=== PATIENT | male | born 1935 | race Caucasian/White ===

== ENCOUNTER 2021-10-28 18:11 | Inpatient (IN) | payer MEDICARE, BC ==
[2021-10-28] MEDS ORDERED: IPRATROPIUM-ALBUTEROL 3 ML NEB INHALATION STA (18:21)
--- NOTE | 2021-10-28 18:29 | ED ---
General Adult HPI - General Stated complaint: LUCÍA Time Seen by Provider: 10/28/21 18:11 Source: patient, EMS, RN notes reviewed, old records reviewed Mode of arrival: EMS Limitations: no limitations - History of Present Illness Initial comments: This is an 86-year-old male who was transferred from [facility]. Patient was transferred because he had pneumonia he was hyponatremic and they were concerned about him being septic. Patient states she started coughing on Wednesday symptoms worsened on Wednesday and today decided to go to the hospital. Patient had fevers but denies chills. Patient denies chest pain or palpitations. Patient denies abdominal pain patient denies nausea vomiting. Patient denies back pain. Patient denies headache patient denies numbness weakness. Patient states he's got a chronic cough and was given antibiotics at the other ER prior to his arrival here - Related Data Allergies Allergy/AdvReac Type Severity Reaction Status Date / Time Penicillins Allergy Anaphylaxis Verified 10/28/21 18:24 Review of Systems ROS Statement: Those systems with pertinent positive or pertinent negative responses have been documented in the HPI. ROS Other: All systems not noted in ROS Statement are negative. Past Medical History Past Medical History: Coronary Artery Disease (CAD), Hyperlipidemia, Hypertension History of Any Multi-Drug Resistant Organisms: None Reported Past Surgical History: No Surgical Hx Reported Past Psychological History: No Psychological Hx Reported Smoking Status: Never smoker Past Alcohol Use History: None Reported Past Drug Use History: None Reported General Exam - General Exam Comments Initial Comments: GENERAL: Patient is well-developed and well-nourished. Patient is nontoxic and well- hydrated and is in mild distress. ENT: Neck is soft and supple. No significant lymphadenopathy is noted. Oropharynx is clear. Moist mucous membranes. Neck has full range of motion without eliciting any pain. EYES: The sclera were anicteric and conjunctiva were pink and moist. Extraocular movements were intact and pupils were equal round and reactive to light. Eyelids were unremarkable. PULMONARY: Unlabored respirations. Good breath sounds bilaterally. Patient has crackles right upper lobe. CARDIOVASCULAR: There is a regular rate and rhythm without any murmurs gallops or rubs. ABDOMEN: Soft and nontender with normal bowel sounds. SKIN: Skin is clear with no lesions or rashes and otherwise unremarkable. NEUROLOGIC: Patient is alert and oriented x3. Cranial nerves II through XII are grossly intact. Motor and sensory are also intact. Normal speech, volume and content. Symmetrical smile. MUSCULOSKELETAL: Normal extremities with adequate strength and full range of motion. LYMPHATICS: No significant lymphadenopathy is noted PSYCHIATRIC: Normal psychiatric evaluation. Limitations: no limitations Course Vital Signs 10/28/21 10/28/21 10/28/21 18:19 18:41 18:46 Temperature 97.7 F Pulse Rate 116 H 114 H 116 H Respiratory 36 H Rate Blood Pressure 143/95 O2 Sat by Pulse 91 L Oximetry Medical Decision Making - Medical Decision Making EKG shows sinus tachycardia with occasional PAC at a rate of 119 bpm WI interval is on a 64 QRS is under 51 QT interval 346 QTC is 417. She has a left bundle branch block Disposition Clinical Impression: Pneumonia, Hyponatremia Disposition: ADMITTED IP TO THIS HOSP Referrals: Domenico Carroll [facility] [REFERRING] - 1-2 days Time of Disposition: 18:31
[2021-10-28] MEDS ORDERED: PNEUMONIA PROTOCOL UTILIZED 1 EACH MISC PO PRN (20:09)
[2021-10-28] MEDS ORDERED: LEVOFLOXACIN 750MG-D5W PMX 750 MG in DEXTROSE/WATER 1 150ML.BAG IVPB STA (20:28)
[2021-10-28] MEDS: SODIUM CHLORIDE 0.9% 1,000 ML IV SCH (22:02)
[2021-10-29] MEDS: metroNIDAZOLE-NS PMX 500 MG in SALINE 1 100ML.BAG IVPB SCH ×2 (01:14→08:19)
[2021-10-29] MEDS ORDERED: FUROSEMIDE 10 MG/ML 4 ML VIAL IV STA (04:51)
[2021-10-29] MEDS: methylPREDNISolone SOD SUCCI 40 MG/ML 1 ML VIAL IV SCH ×3 (04:59→20:13)
--- NOTE | 2021-10-29 05:45 | XR ---
EXAMINATION TYPE: XR chest 1V portable DATE OF EXAM: 10/29/2021 COMPARISON: Study HISTORY: COPD breathing TECHNIQUE: Single view FINDINGS: There is a large area of airspace consolidation lateral right upper lobe. There is coarse p ulmonary interstitial edema. There is mild thoracic levoscoliosis. There are chest leads. No obvious heart failure. No pleural effusion. IMPRESSION: Increasing right upper lobe infiltrate and pulmonary interstitial edema compared to yeste rday and consistent with worsening pneumonia.
[2021-10-29] MEDS ORDERED: LEVOFLOXACIN 750 MG TAB PO SCH (09:00)
[2021-10-29 09:48] LABS: Basophils % (A) 0 %; Eosinophils % (A) 0 %; HCT 43.9 % (39.0-53.0); HGB 14.1 gm/dL (13.0-17.5); Lymphocytes # (A) 0.3 k/uL (1.0-4.8); Lymphocytes % (A) 2 %; MCH 30.6 pg (25.0-35.0); MCHC 32.2 g/dL (31.0-37.0); Mean Platelet Volume 7.2; Monocytes # (A) 0.2 k/uL (0-1.0); Monocytes % (A) 2 %; Neutrophils # (A) 12.9 k/uL (1.3-7.7); Neutrophils % (A) 96 %; Platelet Count 243 k/uL (150-450); RBC 4.62 m/uL (4.30-5.90); RDW 13.3 % (11.5-15.5); WBC 13.5 k/uL (3.8-10.6)
[2021-10-29 10:04] LABS: Sodium 125 mmol/L (137-145)
[2021-10-29 10:06] LABS: ALT 27 U/L (4-49); AST 57 U/L (17-59); African American GFR (CKD) >90 (>60 ml/min/1.73 sqM); Albumin 3.6 g/dL (3.5-5.0); Alkaline Phosphatase 89 U/L (38-126); Anion Gap 9 mmol/L; Blood Urea Nitrogen 21 mg/dL (9-20); Calcium 8.5 mg/dL (8.4-10.2); Carbon Dioxide 26 mmol/L (22-30); Chloride 90 mmol/L (98-107); Glucose 222 mg/dL (74-99); Non-African American GFR(CKD) 80 (>60 ml/min/1.73 sqM); Potassium 3.8 mmol/L (3.5-5.1); Total Bilirubin 1.6 mg/dL (0.2-1.3); Total Protein 6.2 g/dL (6.3-8.2)
[2021-10-29] MEDS ORDERED: RX INFO: IV CONTRAST WAS GIVEN 1 EACH MISC MISCELLANE PRN (10:40)
--- NOTE | 2021-10-29 11:25 | CT ---
EXAMINATION TYPE: CT chest w con DATE OF EXAM: 10/29/2021 COMPARISON: None HISTORY: Masslike consolidation in right lung CT DLP: 506.6 mGycm Automated exposure control for dose reduction was used. CONTRAST: CT scan of the chest is performed with IV Contrast, patient injected with 100 ml mL of Isovue 300. FINDINGS: LUNGS: Large area of airspace consolidation right upper lobe with air bronchograms seen may reflect p neumonia. Infiltrate of other etiology is difficult to exclude. There are additional areas of patchy infiltrate within the right middle lobe and right lower lobe. Small right-sided pleural effusion and even smaller left-sided pleural effusion noted. The remainder of the lungs are clear. MEDIASTINUM: There are no greater than 1 cm hilar or mediastinal lymph nodes. No pericardial effusi on is seen. Thoracic aorta is of normal caliber. The heart is not enlarged. UPPER ABDOMEN: No significant abnormality appreciated. OTHER: No additional significant abnormality is seen. IMPRESSION: Large area of airspace consolidation right upper lobe with air bronchograms seen may reflect pneumoni a. Infiltrate of other etiology is difficult to exclude. Follow-up until resolution advised. Addition al smaller patchy infiltrates right lower lobe right middle lobe.
[2021-10-29] MEDS: ASPIRIN 325 MG TAB PO SCH (11:46)
[2021-10-29] MEDS: lisinopriL 20 MG TAB PO SCH (11:46)
[2021-10-29] MEDS: LEVOTHYROXINE 137 MCG TAB PO SCH (11:46)
[2021-10-29] MEDS: SODIUM CHLORIDE 0.9% 1,000 ML IV SCH (11:46)
[2021-10-29] MEDS ORDERED: ACETAMINOPHEN TAB 325 MG TAB PO PRN (12:16)
[2021-10-29] MEDS ORDERED: LACTULOSE 20 GM/30 ML CUP PO PRN (12:16)
[2021-10-29] MEDS ORDERED: ONDANSETRON 4 MG/2 ML VIAL IVP PRN (12:16)
[2021-10-29] MEDS ORDERED: LORazepam 0.5 MG TAB PO PRN (12:16)
[2021-10-29] MEDS ORDERED: CALCIUM CARBONATE 500 MG CHEWABLE PO PRN (12:16)
--- NOTE | 2021-10-29 13:23 | P.CNPUL ---
History of Present Illness Consult date: 10/29/21 Requesting physician: Jonatan Meredith Reason for consult: pneumonia Chief complaint: Cough and minimal shortness of breath. History of present illness: This is an 86-year-old white male known history of hypertension, lifetime nonsmoker, patient was seen yesterday at [facility] with 3 days history of cough. Patient described the cough as nonproductive, it is not associated with any fever or chills or hemoptysis or chest pain. His cough was persistent, and he was seen in the ER at [facility]. Chest x-ray showed extensive right upper lobe consolidation, hence the patient was transferred to [facility], admitted last night, and I was asked to see him on consul tation. Patient is ALLERGIC to penicillin, he was started empirically on initially Levaquin and Flagyl, but the admitting physician changed to Rocephin. And discontinued Levaquin. CBC showed leukocytosis with WBC count of 13.5. His sodium was noted to be low at 125. And the rest of his labs came back unremarkable. Lactic acid was 1.5. And liver enzymes were basically unremarkable. Renal profile is normal. Patient was admitted and this consult was initiated patient is receiving 0.9 normal saline at 75 mL per hour. After evaluating the patient, I felt that the chest x-ray is showing a masslike consolidation, recommended a CT of the chest, showed extensive consolidation in the right upper lobe, with air bronchogram consistent with pneumonia more so than malignancy. And there is also evidence of infiltrate in the right middle lobe Review of Systems Constitutional: Negative HEENT: Negative Pulmonary: As noted in HPI mostly symptoms of nonproductive cough. Cardiac: Negative, known history of hypertension. GI: Negative Genitourinary: Negative Musculoskeletal low back pain Skin: Negative Urologic: Negative Hematologic: Negative Psychiatric: Negative Neurologic: Negative Past Medical History Past Medical History: Coronary Artery Disease (CAD), Hyperlipidemia, Hypertension History of Any Multi-Drug Resistant Organisms: None Reported Past Surgical History: No Surgical Hx Reported Past Psychological History: No Psychological Hx Reported Smoking Status: Never smoker Past Alcohol Use History: None Reported Past Drug Use History: None Reported Medications and Allergies Home Medications Medication Instructions Recorded Confirmed Type Aspirin EC [Ecotrin] 325 mg PO DAILY 10/28/21 10/28/21 History Glucosamine/Chondr Boudreaux A Sod [Osteo 2 tab PO DAILY 10/28/21 10/28/21 History Bi-Flex Caplet] Levothyroxine Sodium [Synthroid] 137 mcg PO DAILY 10/28/21 10/28/21 History Niacin 500 mg PO HS 10/28/21 10/28/21 History Simvastatin [Zocor] 40 mg PO HS 10/28/21 10/28/21 History lisinopriL [Zestril] 20 mg PO DAILY 10/28/21 10/28/21 History Allergies Allergy/AdvReac Type Severity Reaction Status Date / Time Penicillins Allergy Anaphylaxis Verified 10/28/21 20:24 Physical Exam Vitals: Vital Signs Temp Pulse Pulse Resp BP BP Pulse Ox 10/29/21 11:48 97.7 F 104 H 18 145/66 97 10/29/21 08:00 97.9 F 108 H 18 116/69 97 10/29/21 04:40 98.3 F 117 H 30 H 142/85 95 10/29/21 00:15 101 H 24 137/94 98 10/29/21 00:00 98.1 F 117 H 18 138/89 95 10/28/21 23:55 98.2 F 100 26 H 137/94 96 10/28/21 20:40 98.8 F 93 24 143/69 94 L 10/28/21 18:46 116 H 10/28/21 18:41 114 H 10/28/21 18:19 97.7 F 116 H 36 H 143/95 91 L Intake and Output 10/28/21 10/29/21 10/29/21 22:59 06:59 14:59 Intake Total 300 240 Output Total 600 Balance 300 -360 Intake: Oral 240 Blood Product 300 Output: Urine 600 Other: Voiding Method Urinal # Voids 1 1 Weight 107.955 kg 107.955 kg Physical Exam: Revealed an 86-year-old white male in no distress, on 5 L nasal cannula and O2 sats is 97%. Head: Atraumatic normocephalic. HEENT:[Neck is supple.] [No neck masses.] [No thyromegaly.] [No JVD.] Chest: [Clear throughout, no crackles, no rhonchi, no wheezes.] Cardiac Exam: [Normal S1 and S2, no S3 gallop, no murmur.] Abdomen: [Soft, nontender, no megaly, no rebound, no guarding, normal bowel sounds.] Extremities: [No clubbing, no edema, no cyanosis.] Significant varicose veins and varicose veins noted bilaterally in both lower extremities Neurological Exam: [No focal neurologic deficit.] Psychiatric: Normal mood affect and normal mental status examination. Musculoskeletal: No deformities and no limitation in range of motion. Skin: No rashes and no areas of ecchymosis. Results - Laboratory Findings CBC and BMP: 10/29/21 09:20 10/29/21 09:20 Abnormal lab findings: Abnormal Labs 10/29/21 10/29/21 09:20 09:20 WBC 13.5 H Neutrophils # 12.9 H Lymphocytes # 0.3 L Sodium 125 L Chloride 90 L BUN 21 H Glucose 222 H Total Bilirubin 1.6 H Total Protein 6.2 L - Diagnostic Findings Chest x-ray: image reviewed CT scan - chest: image reviewed (As noted in HPI.) Assessment and Plan Assessment: Impression: Acute hypoxic respiratory failure secondary to acute community-acquired the right upper lobe and right middle lobe pneumonia Hyponatremia secondary to pneumonia possibly SIADH. CT of the chest showed no suspicion for malignancy. History of hypertension. Recommendation: Continue present course of antibiotics. Add Zithromax to Rocephin. Resume home meds for hypertension and for hypothyroidism. GI and DVT prophylaxis. After reviewing the CT of the chest, I do not feel a need for bronchoscopy at this point, however this would be considered if the patient does not improve much. We'll continue to follow. Time with Patient: Greater than 30
--- NOTE | 2021-10-29 14:16 | P.HPIM ---
History of Present Illness H&P Date: 10/29/21 Chief Complaint: Cough short of breath This is a very pleasant 86-year-old patient of Dr. Molina. Chronic stable medical conditions include hypertension, hyperlipidemia, hypothyroid, osteoporosis. About 5 days ago patient started coughing. Rather dry cough. It progressively got worse. Yesterday patient developed a fever and chills. Went down to [facility]. Temperature 100.1. Poor appetite tired rundown. No neck patient also wheezing. Had to put on bronchodilators. Computed tomography scan checks x-ray showed significant pneumonia. Started on IV antibiotics. Review of systems: GEN.: Fever, tired, decreased appetite EYES: None HEENT: Decreased hearing NECK: None RESPIRATORY: As above CARDIOVASCULAR: None GASTROINTESTINAL: None GENITOURINARY: None MUSCULOSKELETAL: Joint pains LYMPHATICS: None HEMATOLOGICAL: None PSYCHIATRY: None NEUROLOGICAL: None Past medical history to include: Hypertension, hyperlipidemia, hypothyroid, post arthritis, hard of hearing Social history: . 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 Family history: Reviewed, noncontributory to presentation Physical examination: VITAL SIGNS: 97, 1.6, 36, 143 showed 95, 91% on 4 L upon presentation GENERAL: BMI 34.1, sitting at edge of bed, awake, tired. EYES: Pupils equal. Conjunctiva normal. HEENT: External appearance of nose and ears normal, oral cavity grossly normal. NECK: JVD not raised; masses not palpable. HEART: First and second heart sounds are normal; no edema. LUNGS:[ Respiratory rate normal; diminished breath sounds. ABDOMEN: Soft, nontender, liver spleen not palpable, no masses palpable. PSYCH: Alert and oriented x3; mood and affect normal. MUSCULOSKELETAL:No Clubbing/cyanosis;muscles-grossly intact. OA NEUROLOGICAL: Cranial nerves grossly intact; no facial asymmetry, power and sensation grossly intact. LYMPHATICS: No lymph nodes palpable in the axilla and neck INVESTIGATIONS, reviewed in the clinical context: White count 13.5 hemoglobin 14.1 platelets 243 sodium 125 potassium 2.8 BUN 21 crit 0.85 Chest x-ray film personally reviewed by me-right upper lobe right middle lobe infiltrate CT chest: Large area of airspace consolidation right upper lobe with air bronchogram. Initial patch infiltrate right lower lobe. Assessment and plan: -Right multilobar pneumonia, suspect gram-negative organism causing sepsis on presentation IV ceftriaxone 1 g every 12 -Acute hypoxic respiratory failure from pneumonia Oxygen supplementation -Sepsis secondary to multilobar pneumonia IV ceftriaxone. IV fluids -Obesity BMI 34.1 -Essential hypertension Zestril 20 mg daily -Zocor 40 mg daily at bedtime, niacin 500 mg by mouth daily at bedtime -Hypothyroid Synthroid 137 g per day -Primary osteoarthritis Tylenol as needed -Hyperlipidemia Zocor 40 mg daily at bedtime IV ceftriaxone.. Resume home medications. IV fluids. Consult pulmonary. Care was discussed with the patient questions answered. Given the complexity and severity of patient's condition expect the patient to be in the hospital at least for 2 overnights Past Medical History Past Medical History: Coronary Artery Disease (CAD), Hyperlipidemia, Hypertension History of Any Multi-Drug Resistant Organisms: None Reported Past Surgical History: No Surgical Hx Reported Past Psychological History: No Psychological Hx Reported Smoking Status: Never smoker Past Alcohol Use History: None Reported Past Drug Use History: None Reported Medications and Allergies Home Medications Medication Instructions Recorded Confirmed Type Aspirin EC [Ecotrin] 325 mg PO DAILY 10/28/21 10/28/21 History Glucosamine/Chondr Boudreaux A Sod [Osteo 2 tab PO DAILY 10/28/21 10/28/21 History Bi-Flex Caplet] Levothyroxine Sodium [Synthroid] 137 mcg PO DAILY 10/28/21 10/28/21 History Niacin 500 mg PO HS 10/28/21 10/28/21 History Simvastatin [Zocor] 40 mg PO HS 10/28/21 10/28/21 History lisinopriL [Zestril] 20 mg PO DAILY 10/28/21 10/28/21 History Allergies Allergy/AdvReac Type Severity Reaction Status Date / Time Penicillins Allergy Anaphylaxis Verified 10/28/21 20:24 Physical Exam Vitals: Vital Signs Temp Pulse Pulse Resp BP BP Pulse Ox 10/29/21 08:00 97.9 F 108 H 18 116/69 97 10/29/21 04:40 98.3 F 117 H 30 H 142/85 95 10/29/21 00:15 101 H 24 137/94 98 10/29/21 00:00 98.1 F 117 H 18 138/89 95 10/28/21 23:55 98.2 F 100 26 H 137/94 96 10/28/21 20:40 98.8 F 93 24 143/69 94 L 10/28/21 18:46 116 H 10/28/21 18:41 114 H 10/28/21 18:19 97.7 F 116 H 36 H 143/95 91 L Intake and Output 10/28/21 10/29/21 10/29/21 22:59 06:59 14:59 Intake Total 300 240 Output Total 600 Balance 300 -360 Intake: Oral 240 Blood Product 300 Output: Urine 600 Other: Voiding Method Urinal # Voids 1 1 Weight 107.955 kg 107.955 kg Results CBC & Chem 7: 10/29/21 09:20 10/29/21 09:20 Labs: Abnormal Lab Results - Last 24 Hours (Table) 10/29/21 10/29/21 Range/Units 09:20 09:20 WBC 13.5 H (3.8-10.6) k/uL Neutrophils # 12.9 H (1.3-7.7) k/uL Lymphocytes # 0.3 L (1.0-4.8) k/uL Sodium 125 L (137-145) mmol/L Chloride 90 L (98-107) mmol/L BUN 21 H (9-20) mg/dL Glucose 222 H (74-99) mg/dL Total Bilirubin 1.6 H (0.2-1.3) mg/dL Total Protein 6.2 L (6.3-8.2) g/dL Thrombosis Risk Factor Assmnt - Choose All That Apply Each Factor Represents 1 point: Obesity (BMI >25) Each Risk Factor Represents 3 Points: Age 75 years or older Thrombosis Risk Factor Assessment Total Risk Factor Score: 4 Thrombosis Risk Factor Assessment Level: Moderate Risk
[2021-10-29] MEDS: AZITHROMYCIN 500 MG TAB PO SCH (14:36)
--- NOTE | 2021-10-29 16:57 | P.GSCN ---
History of Present Illness History of present illness: 86-year-old pleasant gentleman I was consulted for bilateral diabetic medical vein. Patient came with fever chills and shortness of breath and diagnosed with pneumonia Patient has history of hypertension, hyperlipidemia Neck examination neck is supple no bruit appreciated Chest pulses second sound present patient has a crackles bilateral Lung Abdomen soft nontender Vascular femorals are palpable bilateral patient has a large varicosity involving the both lower extremity with bulging veins patient also has a Brown induration of the lower extremity Plan is discussed with the patient and patient follow-up in my office and he recovered completely from his pneumonia Past Medical History Past Medical History: Coronary Artery Disease (CAD), Hyperlipidemia, Hypertension History of Any Multi-Drug Resistant Organisms: None Reported Past Surgical History: No Surgical Hx Reported Past Psychological History: No Psychological Hx Reported Smoking Status: Never smoker Past Alcohol Use History: None Reported Past Drug Use History: None Reported Medications and Allergies Home Medications Medication Instructions Recorded Confirmed Type Aspirin EC [Ecotrin] 325 mg PO DAILY 10/28/21 10/28/21 History Glucosamine/Chondr Boudreaux A Sod [Osteo 2 tab PO DAILY 10/28/21 10/28/21 History Bi-Flex Caplet] Levothyroxine Sodium [Synthroid] 137 mcg PO DAILY 10/28/21 10/28/21 History Niacin 500 mg PO HS 10/28/21 10/28/21 History Simvastatin [Zocor] 40 mg PO HS 10/28/21 10/28/21 History lisinopriL [Zestril] 20 mg PO DAILY 10/28/21 10/28/21 History Allergies Allergy/AdvReac Type Severity Reaction Status Date / Time Penicillins Allergy Anaphylaxis Verified 10/28/21 20:24 Surgical - Exam Vital Signs Temp Pulse Resp BP Pulse Ox 97.7 F 116 H 36 H 143/95 91 L 10/28/21 18:19 10/28/21 18:19 10/28/21 18:19 10/28/21 18:19 10/28/21 18:19 Results - Labs 10/29/21 09:20 10/29/21 09:20 Abnormal Lab Results - Last 24 Hours (Table) 10/29/21 10/29/21 Range/Units 09:20 09:20 WBC 13.5 H (3.8-10.6) k/uL Neutrophils # 12.9 H (1.3-7.7) k/uL Lymphocytes # 0.3 L (1.0-4.8) k/uL Sodium 125 L (137-145) mmol/L Chloride 90 L (98-107) mmol/L BUN 21 H (9-20) mg/dL Glucose 222 H (74-99) mg/dL Total Bilirubin 1.6 H (0.2-1.3) mg/dL Total Protein 6.2 L (6.3-8.2) g/dL Diabetes panel 10/29/21 Range/Units 09:20 Sodium 125 L (137-145) mmol/L Potassium 3.8 (3.5-5.1) mmol/L Chloride 90 L (98-107) mmol/L Carbon Dioxide 26 (22-30) mmol/L BUN 21 H (9-20) mg/dL Creatinine 0.85 (0.66-1.25) mg/dL Glucose 222 H (74-99) mg/dL Calcium 8.5 (8.4-10.2) mg/dL AST 57 (17-59) U/L ALT 27 (4-49) U/L Alkaline Phosphatase 89 (38-126) U/L Total Protein 6.2 L (6.3-8.2) g/dL Albumin 3.6 (3.5-5.0) g/dL Calcium panel 10/29/21 Range/Units 09:20 Calcium 8.5 (8.4-10.2) mg/dL Albumin 3.6 (3.5-5.0) g/dL Pituitary panel 10/29/21 Range/Units 09:20 Sodium 125 L (137-145) mmol/L Potassium 3.8 (3.5-5.1) mmol/L Chloride 90 L (98-107) mmol/L Carbon Dioxide 26 (22-30) mmol/L BUN 21 H (9-20) mg/dL Creatinine 0.85 (0.66-1.25) mg/dL Glucose 222 H (74-99) mg/dL Calcium 8.5 (8.4-10.2) mg/dL Adrenal panel 10/29/21 Range/Units 09:20 Sodium 125 L (137-145) mmol/L Potassium 3.8 (3.5-5.1) mmol/L Chloride 90 L (98-107) mmol/L Carbon Dioxide 26 (22-30) mmol/L BUN 21 H (9-20) mg/dL Creatinine 0.85 (0.66-1.25) mg/dL Glucose 222 H (74-99) mg/dL Calcium 8.5 (8.4-10.2) mg/dL Total Bilirubin 1.6 H (0.2-1.3) mg/dL AST 57 (17-59) U/L ALT 27 (4-49) U/L Alkaline Phosphatase 89 (38-126) U/L Total Protein 6.2 L (6.3-8.2) g/dL Albumin 3.6 (3.5-5.0) g/dL
[2021-10-29] MEDS: ATORVASTATIN 20 MG TAB PO SCH (20:13)
[2021-10-30] MEDS: methylPREDNISolone SOD SUCCI 40 MG/ML 1 ML VIAL IV SCH (05:43)
[2021-10-30] MEDS: LEVOTHYROXINE 137 MCG TAB PO SCH (05:43)
[2021-10-30] MEDS: SODIUM CHLORIDE 0.9% 1,000 ML IV SCH ×2 (05:44→12:48)
[2021-10-30] MEDS: ASPIRIN 325 MG TAB PO SCH (08:38)
[2021-10-30] MEDS: lisinopriL 20 MG TAB PO SCH (08:38)
[2021-10-30] MEDS: AZITHROMYCIN 500 MG TAB PO SCH (08:38)
[2021-10-30 11:41] LABS: Basophils % (A) 0 %; Eosinophils % (A) 0 %; HCT 41.2 % (39.0-53.0); HGB 13.1 gm/dL (13.0-17.5); Lymphocytes # (A) 0.5 k/uL (1.0-4.8); Lymphocytes % (A) 3 %; MCH 29.8 pg (25.0-35.0); MCHC 31.7 g/dL (31.0-37.0); MCV 94.1 fL (80.0-100.0); Mean Platelet Volume 7.3; Monocytes # (A) 0.5 k/uL (0-1.0); Monocytes % (A) 3 %; Neutrophils # (A) 16.7 k/uL (1.3-7.7); Neutrophils % (A) 94 %; Platelet Count 308 k/uL (150-450); RBC 4.38 m/uL (4.30-5.90); RDW 12.5 % (11.5-15.5); WBC 17.8 k/uL (3.8-10.6)
[2021-10-30 12:02] LABS: ALT 28 U/L (4-49); AST 49 U/L (17-59); African American GFR (CKD) >90 (>60 ml/min/1.73 sqM); Albumin 3.4 g/dL (3.5-5.0); Alkaline Phosphatase 90 U/L (38-126); Anion Gap 7 mmol/L; Blood Urea Nitrogen 27 mg/dL (9-20); Calcium 8.9 mg/dL (8.4-10.2); Carbon Dioxide 26 mmol/L (22-30); Chloride 96 mmol/L (98-107); Glucose 162 mg/dL (74-99); Non-African American GFR(CKD) 81 (>60 ml/min/1.73 sqM); Potassium 3.9 mmol/L (3.5-5.1); Sodium 129 mmol/L (137-145); Total Bilirubin 0.6 mg/dL (0.2-1.3); Total Protein 6.1 g/dL (6.3-8.2)
[2021-10-30] MEDS: predniSONE 20 MG TAB PO SCH (12:14)
[2021-10-30 12:30] VITALS: RESP 18
--- NOTE | 2021-10-30 14:56 | P.PN ---
Subjective Progress Note Date: 10/30/21 Principal diagnosis: Acute right upper lobe and right middle lobe pneumonia This is an 86-year-old white male known history of hypertension, lifetime nonsmoker, patient was seen yesterday at [facility] with 3 days history of cough. Patient described the cough as nonproductive, it is not associated with any fever or chills or hemoptysis or chest pain. His cough was persistent, and he was seen in the ER at [facility]. Chest x-ray showed extensive right upper lobe consolidation, hence the patient was transferred to [facility], admitted last night, and I was asked to see him on consultation. Patient is ALLERGIC to penicillin, he was started empirically on initially Levaquin and Flagyl, but the admitting physician changed to Rocephin. And discontinued Levaquin. CBC showed leukocytosis with WBC count of 13.5. His sodium was noted to be low at 125. And the rest of his labs came back unremarkable. Lactic acid was 1.5. And liver enzymes were basically unremarkable. Renal profile is normal. Patient was admitted and this consult was initiated patient is receiving 0.9 normal saline at 75 mL per hour. After evaluating the patient, I felt that the chest x-ray is showing a masslike consolidation, recommended a CT of the chest, showed extensive consolidation in the right upper lobe, with air bronchogram consistent with pneumonia more so than malignancy. And there is also evidence of infiltrate in the right middle lobe Reevaluated today on 10/30/2021, patient is feeling a bit better today, breathing a lot easier, hardly any cough, no fever, no chills, no hemoptysis. Continues to have leukocytosis with WBC 17.8. Sodium is better today up to 129. Blood cultures are negative so far. Pro-calcitonin is elevated at 0.43. Patient is on 3 L nasal cannula and O2 saturation is 98% Objective - Vital Signs Vital signs: Vital Signs Temp 97.4 F L 10/30/21 08:43 Pulse 81 10/30/21 14:00 Resp 18 10/30/21 14:00 BP 152/87 10/30/21 12:00 Pulse Ox 98 10/30/21 12:00 Intake & Output 10/29/21 10/30/21 10/30/21 18:59 06:59 18:59 Intake Total 1140 360 Output Total 600 1 Balance 540 359 Intake: IV 900 Sodium Chloride 0.9% 1, 900 000 ml @ 75 mls/hr IV . [id number] [facility] Rx#:[id number] Oral 240 360 Output: Urine 600 1 Other: Voiding Method Urinal Urinal Urinal # Voids 1 2 - Exam Physical Exam: Revealed an 86-year-old white male in no distress, on 3 L nasal cannula and O2 sats is 98%. Head: Atraumatic normocephalic. HEENT:[Neck is supple.] [No neck masses.] [No thyromegaly.] [No JVD.] Chest: [Clear throughout, no crackles, no rhonchi, no wheezes.] Cardiac Exam: [Normal S1 and S2, no S3 gallop, no murmur.] Abdomen: [Soft, nontender, no megaly, no rebound, no guarding, normal bowel sounds.] Extremities: [No clubbing, no edema, no cyanosis.] Significant varicose veins and varicose veins noted bilaterally in both lower extremities Neurological Exam: [No focal neurologic deficit.] Psychiatric: Normal mood affect and normal mental status examination. Musculoskeletal: No deformities and no limitation in range of motion. Skin: No rashes and no areas of ecchymosis. - Labs CBC & Chem 7: 10/30/21 11:08 10/30/21 11:08 Labs: Abnormal Lab Results - Last 24 Hours (Table) 10/29/21 10/30/21 10/30/21 Range/Units 09:20 11:08 11:08 WBC 17.8 H (3.8-10.6) k/uL Neutrophils # 16.7 H (1.3-7.7) k/uL Lymphocytes # 0.5 L (1.0-4.8) k/uL Sodium 129 L (137-145) mmol/L Chloride 96 L (98-107) mmol/L BUN 27 H (9-20) mg/dL Glucose 162 H (74-99) mg/dL Total Protein 6.1 L (6.3-8.2) g/dL Albumin 3.4 L (3.5-5.0) g/dL Procalcitonin 0.43 H (0.02-0.09) ng/mL Microbiology - Last 24 Hours (Table) 10/28/21 20:50 Blood Culture - Preliminary Blood No Growth after 24 hours 10/28/21 20:55 Blood Culture - Preliminary Blood No Growth after 24 hours Assessment and Plan Assessment: Impression: Acute hypoxic respiratory failure secondary to acute community-acquired the right upper lobe and right middle lobe pneumonia Hyponatremia secondary to pneumonia possibly SIADH. CT of the chest showed no suspicion for malignancy. History of hypertension. Recommendation: Continue present course of antibiotics. Repeat chest x-ray in a.m., Continue home meds for hypertension and hypothyroidism. GI and DVT prophylaxis. Not quite ready for discharge planning We'll continue to follow. Time with Patient: Less than 30
--- NOTE | 2021-10-30 20:03 | P.PN ---
Progress Note - Text Progress Note Date: 10/30/21 Chief Complaint: Cough short of breath This is a very pleasant 86-year-old patient of Dr. Molina. Chronic stable medical conditions include hypertension, hyperlipidemia, hypothyroid, osteoporosis. About 5 days ago patient started coughing. Rather dry cough. It progressively got worse. Yesterday patient developed a fever and chills. Went down to [facility]. Temperature 100.1. Poor appetite tired rundown. No neck patient also wheezing. Had to put on bronchodilators. Computed tomography scan checks x-ray showed significant pneumonia. Started on IV ceftriaxone. October 30: Sitting up in a chair. Feeling a bit better. No sputum production. Appetite improving. Does sleep well last night. Up to the bathroom. IV ceftriaxone. Change IV Solu-Medrol to oral prednisone Active Medications Acetaminophen (Acetaminophen Tab 325 Mg Tab) 650 mg PO Q6HR PRN PRN Reason: Mild Pain or Fever > 100.5 Aspirin (Aspirin 325 Mg Tab) 325 mg PO DAILY [facility] Last Admin: 10/30/21 08:38 Dose: 325 mg Documented by: Atorvastatin Calcium (Atorvastatin 20 Mg Tab) 20 mg PO HS [facility] Last Admin: 10/29/21 20:13 Dose: 20 mg Documented by: Azithromycin (Azithromycin 500 Mg Tab) 500 mg PO DAILY [facility]; Protocol Stop: 10/31/21 09:01 Last Admin: 10/30/21 08:38 Dose: 500 mg Documented by: Calcium Carbonate/Glycine (Calcium Carbonate 500 Mg Chewable) 1,000 mg PO Q4HR PRN PRN Reason: Dyspepsia Sodium Chloride (Saline 0.9%) 1,000 mls @ 75 mls/hr IV .[id number] [facility] Last Admin: 10/30/21 12:48 Dose: Not Given Documented by: Ceftriaxone Sodium 1 gm/ (Sodium Chloride) 50 mls @ 100 mls/hr IVPB Q12HR [facility]; Protocol Last Admin: 10/30/21 08:38 Dose: 100 mls/hr Documented by: Lactulose (Lactulose 20 Gm/30 Ml Cup) 20 gm PO DAILY PRN PRN Reason: Constipation Levothyroxine Sodium (Levothyroxine 137 Mcg Tab) 137 mcg PO DAILY@0630 [facility] Last Admin: 10/30/21 05:43 Dose: 137 mcg Documented by: Lisinopril (Lisinopril 20 Mg Tab) 20 mg PO DAILY [facility] Last Admin: 10/30/21 08:38 Dose: 20 mg Documented by: Lorazepam (Lorazepam 0.5 Mg Tab) 0.5 mg PO Q6HR PRN PRN Reason: Anxiety Miscellaneous Information (Pneumonia Protocol Utilized 1 Each Misc) 1 each PO ONCE PRN PRN Reason: Per Protocol Miscellaneous Information (Rx Info: Iv Contrast Was Given 1 Each Misc) 1 each MISCELLANE DAILY PRN PRN Reason: Per Protocol Stop: 10/31/21 10:40 Ondansetron HCl (Ondansetron 4 Mg/2 Ml Vial) 4 mg IVP Q8HR PRN PRN Reason: Nausea And Vomiting Prednisone (Prednisone 20 Mg Tab) 40 mg PO DAILY [facility] Last Admin: 10/30/21 12:14 Dose: 40 mg Documented by: Past medical history to include: Hypertension, hyperlipidemia, hypothyroid, post arthritis, hard of hearing Social history: . 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 Family history: Reviewed, noncontributory to presentation Physical examination: VITAL SIGNS: 97.4, 100, 20, 154/90, 98% on 4 L GENERAL: Up in a chair, looking better EYES: Pupils equal. Conjunctiva normal. HEENT: External appearance of nose and ears normal, oral cavity grossly normal. NECK: JVD not raised; masses not palpable. HEART: First and second heart sounds are normal; no edema. LUNGS:[ Respiratory rate increased; diminished breath sounds. ABDOMEN: Soft, nontender, liver spleen not palpable, no masses palpable. PSYCH: Alert and oriented x3; mood and affect normal. MUSCULOSKELETAL:No Clubbing/cyanosis;muscles-grossly intact. OA k INVESTIGATIONS, reviewed in the clinical context: October 30: White count 17.8 hemoglobin 13.1 sodium 129 potassium 3.9 BUN 27 creatinine 0.81 pro-calcitonin 0.25 White count 13.5 hemoglobin 14.1 platelets 243 sodium 125 potassium 2.8 BUN 21 crit 0.85 Chest x-ray film personally reviewed by me-right upper lobe right middle lobe infiltrate CT chest: Large area of airspace consolidation right upper lobe with air bronchogram. Initial patch infiltrate right lower lobe. Assessment and plan: -Right multilobar pneumonia, suspect gram-negative organism causing sepsis on presentation: Improving IV ceftriaxone 1 g every 12 -Acute hypoxic respiratory failure from pneumonia: Slow to respond 4 L of nasal cannula -Sepsis secondary to multilobar pneumonia: Better IV ceftriaxone. IV fluids -Obesity BMI 34.1 -Essential hypertension Zestril 20 mg daily -Zocor 40 mg daily at bedtime, niacin 500 mg by mouth daily at bedtime -Hypoosmolar hyponatremia from decreased oral intake Restrict fluid intake. Encourage oral intake -Hypothyroid Synthroid 137 g per day -Primary osteoarthritis Tylenol as needed -Hyperlipidemia Zocor 40 mg daily at bedtime IV ceftriaxone.. Fluid restrict. Other medications to continue. Change to by mouth prednisone. Increase activity.
[2021-10-30] MEDS: ATORVASTATIN 20 MG TAB PO SCH (20:55)
--- NOTE | 2021-10-31 08:04 | XR ---
EXAMINATION TYPE: XR chest 2V DATE OF EXAM: 10/31/2021 COMPARISON: Chest x-ray 10/29/2021 HISTORY: Pneumonia TECHNIQUE: Frontal and lateral views of the chest are obtained. FINDINGS: Airspace disease in the right upper lobe is somewhat less confluent. There is no evident p neumothorax or pleural effusion. Improved aeration at the right lung base as well. Cardiac mediastina l sweat is stable. There are overlying leads. IMPRESSION: There is some improvement in aeration.
[2021-10-31 08:05] VITALS: TEMP 97.9
[2021-10-31] MEDS: ASPIRIN 325 MG TAB PO SCH (08:54)
[2021-10-31] MEDS: lisinopriL 20 MG TAB PO SCH (08:54)
[2021-10-31] MEDS: LEVOTHYROXINE 137 MCG TAB PO SCH (08:55)
[2021-10-31] MEDS: AZITHROMYCIN 500 MG TAB PO SCH (08:55)
[2021-10-31] MEDS: predniSONE 20 MG TAB PO SCH (08:55)
[2021-10-31] MEDS: SODIUM CHLORIDE 0.9% 1,000 ML IV SCH (08:58)
[2021-10-31 13:02] VITALS: BP 151/81; PULSE 87
--- NOTE | 2021-10-31 14:56 | P.PN ---
Subjective Progress Note Date: 10/31/21 Principal diagnosis: Acute right upper lobe and right middle lobe pneumonia This is an 86-year-old white male known history of hypertension, lifetime nonsmoker, patient was seen yesterday at [facility] with 3 days history of cough. Patient described the cough as nonproductive, it is not associated with any fever or chills or hemoptysis or chest pain. His cough was persistent, and he was seen in the ER at [facility]. Chest x-ray showed extensive right upper lobe consolidation, hence the patient was transferred to [facility], admitted last night, and I was asked to see him on consultation. Patient is ALLERGIC to penicillin, he was started empirically on initially Levaquin and Flagyl, but the admitting physician changed to Rocephin. And discontinued Levaquin. CBC showed leukocytosis with WBC count of 13.5. His sodium was noted to be low at 125. And the rest of his labs came back unremarkable. Lactic acid was 1.5. And liver enzymes were basically unremarkable. Renal profile is normal. Patient was admitted and this consult was initiated patient is receiving 0.9 normal saline at 75 mL per hour. After evaluating the patient, I felt that the chest x-ray is showing a masslike consolidation, recommended a CT of the chest, showed extensive consolidation in the right upper lobe, with air bronchogram consistent with pneumonia more so than malignancy. And there is also evidence of infiltrate in the right middle lobe Reevaluated today on 10/30/2021, patient is feeling a bit better today, breathing a lot easier, hardly any cough, no fever, no chills, no hemoptysis. Continues to have leukocytosis with WBC 17.8. Sodium is better today up to 129. Blood cultures are negative so far. Pro-calcitonin is elevated at 0.43. Patient is on 3 L nasal cannula and O2 saturation is 98% Reevaluated today on , patient is feeling much better today, breathing a lot easier, chest x-ray is definitely showing some improvement. The right upper lobe seems to be aerating much better compared to the initial chest x-ray on admission. Hence I believe the patient could be considered for discharge home, and I will clear the patient for discharge. Could be discharged home on Levaquin since the patient is ALLERGIC to penicillin. Or could consider Ceftin 500 twice a day for 10 days. Again the patient is showing and demonstrating significant clinical improvement his sodium is also up to 129 from 125 on admission Objective - Vital Signs Vital signs: Vital Signs Temp 97.9 F 10/31/21 08:03 Pulse 87 10/31/21 12:00 Resp 18 10/31/21 12:00 BP 151/81 10/31/21 12:00 Pulse Ox 98 10/31/21 12:00 Intake & Output 10/30/21 10/31/21 10/31/21 18:59 06:59 18:59 Intake Total 960 1120 Output Total 1 1 Balance 959 1119 Intake: Oral 960 1120 Output: Urine 1 1 Other: Voiding Method Urinal Urinal Urinal # Voids 2 2 # Bowel Movements 1 - Exam Physical Exam: Revealed an 86-year-old white male in no distress, on room air Head: Atraumatic normocephalic. HEENT:[Neck is supple.] [No neck masses.] [No thyromegaly.] [No JVD.] Chest: [Clear throughout, no crackles, no rhonchi, no wheezes.] Cardiac Exam: [Normal S1 and S2, no S3 gallop, no murmur.] Abdomen: [Soft, nontender, no megaly, no rebound, no guarding, normal bowel sounds.] Extremities: [No clubbing, no edema, no cyanosis.] Significant varicose veins and varicose veins noted bilaterally in both lower extremities Neurological Exam: [No focal neurologic deficit.] Psychiatric: Normal mood affect and normal mental status examination. Musculoskeletal: No deformities and no limitation in range of motion. Skin: No rashes and no areas of ecchymosis. - Labs CBC & Chem 7: 10/30/21 11:08 10/30/21 11:08 Labs: Abnormal Lab Results - Last 24 Hours (Table) 10/30/21 Range/Units 11:08 Procalcitonin 0.25 H (0.02-0.09) ng/mL Microbiology - Last 24 Hours (Table) 10/28/21 20:55 Blood Culture - Preliminary Blood No Growth after 48 hours 10/28/21 20:50 Blood Culture - Preliminary Blood No Growth after 48 hours Assessment and Plan Assessment: Impression: Acute hypoxic respiratory failure secondary to acute community-acquired the right upper lobe and right middle lobe pneumonia, improving. 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 CT of the chest showed no suspicion for malignancy. History of hypertension. Recommendation: We'll clear the patient to be discharged home today. Discussed and reviewed chest x-ray findings with the patient. Patient could follow-up with me in one week post discharge. Time with Patient: Less than 30
--- NOTE | 2021-10-31 20:10 | P.DS ---
Providers Date of admission: 10/28/21 20:10 Expected date of discharge: 10/31/21 Attending physician: Jonatan Meredith Consults: 10/28/21 20:25 Consult Physician Routine Consulting Provider: Yeny Ruelas Consult Reason/Comments: Pneumonia Do you want consulting provider notified?: Yes 10/29/21 12:15 Consult Physician Routine Consulting Provider: Dmitry Camacho Consult Reason/Comments: severe varicose veins Do you want consulting provider notified?: Yes Primary care physician: [facility] Course: Chief Complaint: Cough short of breath This is a very pleasant 86-year-old patient of Dr. Molina. Chronic stable medical conditions include hypertension, hyperlipidemia, hypothyroid, osteoporosis. About 5 days ago patient started coughing. Rather dry cough. It progressively got worse. Yesterday patient developed a fever and chills. Went down to [facility]. Temperature 100.1. Poor appetite tired rundown. No neck patient also wheezing. Had to put on bronchodilators. Computed tomography scan checks x-ray showed significant pneumonia. Started on IV ceftriaxone. October 30: Sitting up in a chair. Feeling a bit better. No sputum production. Appetite improving. Does sleep well last night. Up to the bathroom. IV ceftriaxone. Change IV Solu-Medrol to oral prednisone October 31: Doing much better. His brother and his present. Respiratory symptoms greatly improved. Some dry cough. Eating well. Up to the bathroom. Keen to go home. Complete 5 days of Ceftin. Follow up with pulmonary. Short burst of steroid. Discussion and discharge planning more than 35 minutes Past medical history to include: Hypertension, hyperlipidemia, hypothyroid, post arthritis, hard of hearing Social history: . 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 Family history: Reviewed, noncontributory to presentation Physical examination: VITAL SIGNS: 97.9, 87, 18, 151/81, 98% room air GENERAL: Up in a chair, comfortable EYES: Pupils equal. Conjunctiva normal. HEENT: External appearance of nose and ears normal, oral cavity grossly normal. NECK: JVD not raised; masses not palpable. HEART: First and second heart sounds are normal; no edema. LUNGS:[ Respiratory rate normal; improved air entry ABDOMEN: Soft, nontender, liver spleen not palpable, no masses palpable. PSYCH: Alert and oriented x3; mood and affect normal. MUSCULOSKELETAL:No Clubbing/cyanosis;muscles-grossly intact. OA k INVESTIGATIONS, reviewed in the clinical context: October 30: White count 17.8 hemoglobin 13.1 sodium 129 potassium 3.9 BUN 27 creatinine 0.81 pro-calcitonin 0.25 White count 13.5 hemoglobin 14.1 platelets 243 sodium 125 potassium 2.8 BUN 21 crit 0.85 Chest x-ray film personally reviewed by me-right upper lobe right middle lobe infiltrate CT chest: Large area of airspace consolidation right upper lobe with air bronchogram. Initial patch infiltrate right lower lobe. Assessment and plan: -Right multilobar pneumonia, suspect gram-negative organism causing sepsis on presentation: Improved IV ceftriaxone 1 g every 12. Ceftin 5 mg twice a day for 5 days -Acute hypoxic respiratory failure from pneumonia: Improved Pulse ox on room air -Sepsis secondary to multilobar pneumonia: Improved IV ceftriaxone. IV fluids -Obesity BMI 34.1 -Essential hypertension Zestril 20 mg daily -Zocor 40 mg daily at bedtime, niacin 500 mg by mouth daily at bedtime -Hypoosmolar hyponatremia from decreased oral intake Restrict fluid intake. Encourage oral intake -Hypothyroid Synthroid 137 g per day -Primary osteoarthritis Tylenol as needed -Hyperlipidemia Zocor 40 mg daily at bedtime Disposition: Home Plan - Discharge Summary Discharge Rx Participant: No New Discharge Prescriptions: New Aspirin 81 mg PO DAILY #30 tab Cefuroxime Axetil [Ceftin] 500 mg PO BID #10 tab predniSONE 0 mg PO DIRECTED #6 tab Continue Niacin 500 mg PO HS Levothyroxine Sodium [Synthroid] 137 mcg PO DAILY lisinopriL [Zestril] 20 mg PO DAILY Simvastatin [Zocor] 40 mg PO HS Glucosamine/Chondr Boudreaux A Sod [Osteo Bi-Flex Caplet] 2 tab PO DAILY Discontinued Aspirin EC [Ecotrin] 325 mg PO DAILY Discharge Medication List Glucosamine/Chondr Boudreaux A Sod [Osteo Bi-Flex Caplet] 2 tab PO DAILY 10/28/21 [History] Levothyroxine Sodium [Synthroid] 137 mcg PO DAILY 10/28/21 [History] Niacin 500 mg PO HS 10/28/21 [History] Simvastatin [Zocor] 40 mg PO HS 10/28/21 [History] lisinopriL [Zestril] 20 mg PO DAILY 10/28/21 [History] Aspirin 81 mg PO DAILY #30 tab 10/31/21 [Rx] Cefuroxime Axetil [Ceftin] 500 mg PO BID #10 tab 10/31/21 [Rx] predniSONE 0 mg PO DIRECTED #6 tab 10/31/21 [Rx] Follow up Appointment(s)/Referral(s): Yeny Ruelas MD [STAFF PHYSICIAN] - 11/19/21 1:30 pm Domenico Carroll NPC [REFERRING] - 11/03/21 11:30 am Patient Instructions/Handouts: Hyponatremia (DC) Discharge Disposition: HOME SELF-CARE
== END 2021-10-31 15:40 | disposition home or self-care (01) | DRG 871 ==
LOC: EC 18:11 → 3SCARD 20:10
PROVIDERS: ADMIT Hospitalist; ATTEND Hospitalist
DX: A41.59 Other Gram-negative sepsis (principal); J96.01 Acute respiratory failure with hypoxia; J15.6 Pneumonia due to other Gram-negative bacteria; E22.2 Syndrome of inappropriate secretion of antidiuretic hormone; A41.9 Sepsis, unspecified organism; E03.9 Hypothyroidism, unspecified; E66.9 Obesity, unspecified; E78.5 Hyperlipidemia, unspecified; F41.9 Anxiety disorder, unspecified; H91.90 Unspecified hearing loss, unspecified ear; I10 Essential (primary) hypertension; I25.10 Atherosclerotic heart disease of native coronary artery without angina pectoris; I44.7 Left bundle-branch block, unspecified; I83.90 Asymptomatic varicose veins of unspecified lower extremity; K59.00 Constipation, unspecified; M19.91 Primary osteoarthritis, unspecified site; M81.0 Age-related osteoporosis without current pathological fracture; Z68.34 Body mass index [BMI] 34.0-34.9, adult; Z79.82 Long term (current) use of aspirin; Z79.890 Hormone replacement therapy; Z79.899 Other long term (current) drug therapy; Z88.0 Allergy status to penicillin
CPT/HCPCS: 71045; 71046; 71260; 80053; 83605; 84145; 85025; 87040; 93005; 94640; 96365; 99284